=== PATIENT | female | born 1965 | race Caucasian/White ===

== ENCOUNTER 2022-03-17 11:35 | Day surgery (SDC) | payer MEDICAID ==
[~2022-03-17] VITALS: Ht 170.2 cm; Wt 81.0 kg
[2022-03-17] MEDS ORDERED: LIDOcaine 1% 30ml preserv. free vial ONE (11:49)
[2022-03-17 11:50] VITALS: BP 119/60
[2022-03-17] MEDS ORDERED: HYDR-3972 PO (12:07)
[2022-03-17] MEDS ORDERED: ALBU17AE26 (12:07)
[2022-03-17] MEDS ORDERED: AMLO-708 PO (12:07)
[2022-03-17] MEDS ORDERED: FLUO-1 PO (12:14)
[2022-03-17] MEDS ORDERED: VENL150C58 PO (12:14)
[2022-03-17] MEDS ORDERED: FURO80TA3 PO (12:14)
[2022-03-17] MEDS ORDERED: SEVE800T28 (12:14)
[2022-03-17] MEDS ORDERED: SODI10PO (12:14)
[2022-03-17] MEDS ORDERED: INSU100V9 SQ (12:14)
[2022-03-17] MEDS ORDERED: VENL75CA61 PO (12:14)
[2022-03-17] MEDS ORDERED: GABA300C (12:14)
[2022-03-17 12:15] VITALS: BP 110/60
[2022-03-17] MEDS ORDERED: OMEG1CAP61 PO (12:15)
[2022-03-17] MEDS ORDERED: VITA-268 PO (12:16)
[2022-03-17 12:25] VITALS: BP 109/63
== END 2022-03-17 12:55 | disposition home or self-care (01) ==
LOC: SSTAY O 11:35
PROVIDERS: ATTEND Radiology Diagnostic Radiology
DX: Z45.2 Encounter for adjustment and management of vascular access device (principal); E11.22 Type 2 diabetes mellitus with diabetic chronic kidney disease; N18.9 Chronic kidney disease, unspecified; I12.9 Hypertensive chronic kidney disease with stage 1 through stage 4 chronic kidney disease, or unspecified chronic kidney disease; Z88.8 Allergy status to other drugs, medicaments and biological substances; Z98.890 Other specified postprocedural states; Z79.899 Other long term (current) drug therapy; Z79.4 Long term (current) use of insulin
CPT/HCPCS: 36589; J3490; A6258; A6402